=== PATIENT | female | born 1985 | race Caucasian/White ===

== ENCOUNTER 2017-06-10 22:23 | Emergency (ER) | payer OTHER ==
[2017-06-11] MEDS: ALBUTEROL 0.083% (NEB) 2.5 MG/3 ML AMP NEB (02:30)
[2017-06-11] MEDS: IPRATROPIUM (NEB) 0.5 MG/2.5 ML AMP NEB (02:30)
== END 2017-06-11 04:03 | disposition home or self-care (01) ==
LOC: FTE 22:23
DX: J20.9 Acute bronchitis, unspecified (principal)
CPT/HCPCS: 71045; 94664; 99284-25

== ENCOUNTER 2017-07-21 07:59 | Emergency (ER) | payer OTHER ==
[2017-07-21] MEDS ORDERED: KETOROLAC 30 MG INJ IV (08:32)
[2017-07-21] MEDS: KETOROLAC 30 MG INJ IV (09:17)
[2017-07-21] MEDS: SOD CHLORIDE 0.9% 1,000 ML IV (09:17)
[2017-07-21] MEDS: METOCLOPRAMIDE 10 MG INJ IV (09:18)
[2017-07-21 09:29] LABS: ADD MAN DIFF? NO
[2017-07-21 09:34] LABS: BASOPHILS % 0.2 % (0.0-2.0); EOSINOPHILS # 0.3 10^3/ul (0.0-0.5); EOSINOPHILS % 3.6 % (0.0-7.0); HEMATOCRIT 42.8 % (37.0-47.0); HEMOGLOBIN 13.7 g/dl (12.0-16.0); LYMPHOCYTES # 2.6 10^3/ul (0.8-2.9); LYMPHOCYTES % 28.5 % (15.0-51.0); MEAN CORPUSCULAR HEMOGLOBIN 28.3 pg (29.0-33.0); MEAN CORPUSCULAR VOLUME 88.4 fl (82.0-101.0); MEAN PLATELET VOLUME 10.9 fl (7.4-10.4); MONOCYTE # 0.5 10^3/ul (0.3-0.9); MONOCYTES % 5.4 % (0.0-11.0); NEUTROPHIL # 5.7 10^3/ul (1.6-7.5); NEUTROPHILS % 62.1 % (39.0-77.0); PLATELET COUNT 251 10^3/UL (140-415); RED BLOOD COUNT 4.84 10^6/ul (4.20-5.40); RED CELL DISTRIBUTION WIDTH 13.5 % (11.5-14.5)
[2017-07-21 09:34] LABS: WHITE BLOOD COUNT 9.2 10^3/ul (4.8-10.8)
[2017-07-21 09:46] LABS: ADD UMIC YES; UR ASCORBIC ACID NEGATIVE (NEGATIVE); UR BACTERIA FEW /HPF (NONE SEEN); UR BILIRUBIN (Dip) NEGATIVE (NEGATIVE); UR BLOOD (Dip) 1+ mg/dL (NEGATIVE); UR CLARITY CLOUDY (CLEAR); UR COLOR YELLOW (YELLOW); UR GLUCOSE (Dip) NEGATIVE (NEGATIVE); UR KETONES (Dip) NEGATIVE (NEGATIVE); UR LEUKOCYTE ESTERASE (Dip) 3+ Leu/ul (NEGATIVE); UR MUCUS FEW /HPF (NONE SEEN); UR NITRITE (Dip) NEGATIVE (NEGATIVE); UR RBC 13 /HPF (0-5); UR SQUAMOUS EPITHELIAL CELL MODERATE /HPF (FEW); UR TOTAL PROTEIN (Dip) NEGATIVE (NEGATIVE); UR UROBILINOGEN (Dip) NEGATIVE (NEGATIVE); UR WBC 15 /HPF (0-5)
[2017-07-21 09:52] LABS: ALANINE AMINOTRANSFERASE 33 IU/L (13-69); ALBUMIN/GLOBULIN RATIO 1.21; ALKALINE PHOSPHATASE 124 IU/L (42-121); ANION GAP 13 (8-16); ASPARTATE AMINO TRANSFERASE 25 IU/L (15-46); BILIRUBIN,INDIRECT 0.3 mg/dl (0-1.1); BILIRUBIN,TOTAL 0.3 mg/dl (0.2-1.3); BLOOD UREA NITROGEN 14 mg/dl (7-20); CALCIUM 9.4 mg/dl (8.4-10.2); CARBON DIOXIDE 28 mmol/L (21-31); CHLORIDE 108 mmol/L (97-110); CREATININE 0.62 mg/dl (0.44-1.00); GLUCOSE 109 mg/dl (70-220); LIPASE 41 U/L (23-300); POTASSIUM 4.7 mmol/L (3.5-5.1); SODIUM 144 mmol/L (135-144); TOTAL PROTEIN 7.3 g/dl (6.1-8.1)
== END 2017-07-21 11:10 | disposition home or self-care (01) ==
LOC: FTE 07:59
DX: R51 Headache (principal); R10.30 Lower abdominal pain, unspecified; R11.10 Vomiting, unspecified
CPT/HCPCS: 36415; 80053; 81001; 81025; 83690; 85025; 96374; 96375; 99284-25

== ENCOUNTER 2017-07-25 00:08 | Emergency (ER) | payer OTHER ==
[2017-07-25] MEDS: LIDOCAINE/MYLANTA 40 ML BTL PO (04:31)
[2017-07-25] MEDS: ONDANSETRON (ODT) 4 MG TAB ODT (04:31)
[2017-07-25] MEDS: METOCLOPRAMIDE 10 MG INJ IM (05:11)
[2017-07-25 05:26] LABS: URINE BLOOD (Dip) POC Negative (NEGATIVE); URINE GLUCOSE (Dip) POC Negative (NEGATIVE); URINE KETONES (Dip) POC Negative (NEGATIVE); URINE LEUKOCYTE EST (Dip) POC 1+ (NEGATIVE); URINE NITRITE (Dip) POC Negative (NEGATIVE); URINE TOTAL PROTEIN POC Negative (NEGATIVE)
== END 2017-07-25 05:58 | disposition home or self-care (01) ==
LOC: FTE 00:08
DX: N30.00 Acute cystitis without hematuria (principal); K21.9 Gastro-esophageal reflux disease without esophagitis; R10.2 Pelvic and perineal pain
CPT/HCPCS: 81003; 81025; 96372; 99284-25

== ENCOUNTER 2017-11-24 02:44 | Emergency (ER) | payer OTHER | END 2017-11-24 04:17 | disposition home or self-care (01) | LOC: FTE 02:44 | DX: J20.9 Acute bronchitis, unspecified (principal); J02.9 Acute pharyngitis, unspecified; Z76.0 Encounter for issue of repeat prescription | CPT/HCPCS: 99283; Z7502 ==

== ENCOUNTER 2018-02-13 10:40 | Emergency (ER) | payer OTHER ==
[2018-02-13] MEDS: KETOROLAC 30 MG INJ IM (11:28)
== END 2018-02-13 12:40 | disposition home or self-care (01) ==
LOC: FTE 10:40
DX: M54.9 Dorsalgia, unspecified (principal)
CPT/HCPCS: 81025; 96372; 99284-25

== ENCOUNTER 2018-07-16 19:45 | Emergency (ER) | payer OTHER | END 2018-07-16 23:01 | disposition home or self-care (01) | LOC: FTE 19:45 | DX: J30.9 Allergic rhinitis, unspecified (principal) | CPT/HCPCS: 99283; Z7502 ==

== ENCOUNTER 2018-09-04 10:57 | Emergency (ER) | payer MEDICAID, OTHER ==
[2018-09-04 11:27] LABS: ADD MAN DIFF? NO
[2018-09-04 11:30] LABS: BASOPHILS % 0.2 % (0.0-2.0); EOSINOPHILS # 0.2 10^3/ul (0.0-0.5); EOSINOPHILS % 1.9 % (0.0-7.0); HEMATOCRIT 39.1 % (37.0-47.0); HEMOGLOBIN 12.8 g/dl (12.0-16.0); LYMPHOCYTES # 2.7 10^3/ul (0.8-2.9); LYMPHOCYTES % 24.8 % (15.0-51.0); MEAN CORPUSCULAR HEMOGLOBIN 28.1 pg (29.0-33.0); MEAN CORPUSCULAR HGB CONC 32.7 g/dl (32.0-37.0); MEAN CORPUSCULAR VOLUME 85.7 fl (82.0-101.0); MEAN PLATELET VOLUME 10.5 fl (7.4-10.4); MONOCYTE # 0.6 10^3/ul (0.3-0.9); MONOCYTES % 5.8 % (0.0-11.0); NEUTROPHIL # 7.2 10^3/ul (1.6-7.5); NEUTROPHILS % 66.9 % (39.0-77.0); PLATELET COUNT 241 10^3/UL (140-415); RED BLOOD COUNT 4.56 10^6/ul (4.20-5.40); RED CELL DISTRIBUTION WIDTH 14.1 % (11.5-14.5)
[2018-09-04 11:30] LABS: WHITE BLOOD COUNT 10.7 10^3/ul (4.8-10.8)
[2018-09-04 11:52] LABS: ADD UMIC YES; ALANINE AMINOTRANSFERASE 19 IU/L (13-69); ALBUMIN 3.7 g/dl (3.3-4.9); ALBUMIN/GLOBULIN RATIO 1.05; ALKALINE PHOSPHATASE 91 IU/L (42-121); ANION GAP 10 (5-13); ASPARTATE AMINO TRANSFERASE 20 IU/L (15-46); BILIRUBIN,INDIRECT 0.4 mg/dl (0-1.1); BILIRUBIN,TOTAL 0.4 mg/dl (0.2-1.3); BLOOD UREA NITROGEN 11 mg/dl (7-20); CALCIUM 8.5 mg/dl (8.4-10.2); CARBON DIOXIDE 23 mmol/L (21-31); CHLORIDE 109 mmol/L (97-110); CREATININE 0.54 mg/dl (0.44-1.00); Estimated GFR > 60 mL/min (>60); GLUCOSE 109 mg/dl (70-220); POTASSIUM 3.7 mmol/L (3.5-5.1); SODIUM 142 mmol/L (135-144); TOTAL PROTEIN 7.2 g/dl (6.1-8.1); UR ASCORBIC ACID NEGATIVE (NEGATIVE); UR BACTERIA FEW /HPF (NONE SEEN); UR BILIRUBIN (Dip) NEGATIVE (NEGATIVE); UR BLOOD (Dip) 1+ mg/dL (NEGATIVE); UR CLARITY CLEAR (CLEAR); UR COLOR COLORLESS (YELLOW); UR GLUCOSE (Dip) NEGATIVE (NEGATIVE); UR KETONES (Dip) NEGATIVE (NEGATIVE); UR LEUKOCYTE ESTERASE (Dip) NEGATIVE Leu/ul (NEGATIVE); UR NITRITE (Dip) NEGATIVE (NEGATIVE); UR RBC 0 /HPF (0-5); UR SPECIFIC GRAVITY (Dip) 1.001 (1.003-1.030); UR TOTAL PROTEIN (Dip) NEGATIVE (NEGATIVE); UR UROBILINOGEN (Dip) NEGATIVE (NEGATIVE); UR WBC 0 /HPF (0-5)
[2018-09-04 12:06] LABS: AMPHETAMINE/METHAMPHETAMINE Positive (NEGATIVE); BARBITURATES Negative (NEGATIVE); CANNABINOIDS Negative (NEGATIVE); COCAINE Negative (NEGATIVE); OPIATES Negative (NEGATIVE)
[2018-09-04 12:07] LABS: ACETAMINOPHEN < 10.0 ug/ml (10.0-30.0); BENZODIAZEPINES Positive (NEGATIVE); ETHANOL < 10.0 mg/dl (0-0); SALICYLATE < 1.0 mg/dl (5.0-30.0)
[2018-09-04] MEDS ORDERED: DIPHENHYDRAMINE 50 MG INJ (20:40)
[2018-09-04] MEDS: DIPHENHYDRAMINE 50 MG INJ IV (21:00)
[2018-09-05] MEDS: DIPHENHYDRAMINE 25 MG CAP PO (22:37)
== END 2018-09-06 03:36 ==
LOC: E/R 09-06 03:36
DX: T42.4X2A Poisoning by benzodiazepines, intentional self-harm, initial encounter (principal)
CPT/HCPCS: 36415; 80053; 80307; 81001; 81025; 85025; 99285-25

== ENCOUNTER 2018-09-18 18:54 | Emergency (ER) | payer MEDICAID ==
[2018-09-18] MEDS: LORAZEPAM 1 MG TAB PO (19:55)
[2018-09-18] MEDS: ACETAMINOPHEN 325 MG TAB PO (19:57)
== END 2018-09-18 21:43 | disposition home or self-care (01) ==
LOC: FTE 18:54
DX: R20.0 Anesthesia of skin (principal); M54.10 Radiculopathy, site unspecified
CPT/HCPCS: 70450; 72125; 93005; 99284-25